=== PATIENT | female | born 1940 | race Two or more races ===

== ENCOUNTER 2017-11-14 09:15 | Inpatient (IN) | payer OTHER ==
[2017-11-15] MEDS ORDERED: IOPAMIDOL (ISOVUE-300) 100 ML BTL ONE ×2 (08:09→10:59)
[2017-11-15] MEDS ORDERED: CLOPIDOGREL BISULFATE 75 MG TAB PO ONE (09:40)
[2017-11-15] MEDS ORDERED: ceFAZolin 2 GM/DEXTROSE 100 ML IV ONE (09:40)
[2017-11-15] MEDS ORDERED: ACETAMINOPHEN 500 MG TAB PO ONE (09:40)
--- NOTE | 2017-11-15 09:41 | PDHPUP ---
History & Physical Update H&P update statement: This history and physical update is based on an assessment of the patient which was completed after admission or registration (within 24 hours), but prior to the surgery/procedure. H&P update: H&P reviewed & patient examined, no change in patient's condition since H&P completed
[2017-11-15] MEDS ORDERED: fentaNYL 100 MCG/2 ML INJ ONE (09:51)
[2017-11-15] MEDS ORDERED: PROPOFOL/EMULSION 500 MG/50 ML BOTTLE IV ONE (09:53)
[2017-11-15] MEDS ORDERED: PHENYLEPHRINE HCL 100 MCG/ML SYR ONE (10:04)
[2017-11-15] MEDS ORDERED: ONDANSETRON 4 MG/2 ML VIAL IVP PRN ×2 (11:43→13:21)
[2017-11-15] MEDS ORDERED: NALOXONE HCL 0.4 MG/ML INJ IVP PRN (11:43)
[2017-11-15] MEDS ORDERED: HYDROmorphONE/DILAUDID 2 MG/ML INJ IVP PRN (11:43)
[2017-11-15] MEDS ORDERED: NS 500 ML IV PRN (11:43)
[2017-11-15] MEDS ORDERED: DEXAMETHASONE 4 MG/ML VIAL IVP PRN (11:43)
[2017-11-15] MEDS ORDERED: fentaNYL 100 MCG/2 ML INJ IVP PRN (11:43)
--- NOTE | 2017-11-15 11:43 | PDANEPAE ---
ANE History of Present Illness here for JOY stent/coil ANE Past Medical History - Cardiovascular History Hx Hypertension: No Hx Arrhythmias: No Hx Chest Pain: No Hx Coronary Artery / Peripheral Vascular Disease: No Hx CHF / Valvular Disease: No Hx Palpitations: No - Pulmonary History Hx COPD: No Hx Asthma/Reactive Airway Disease: No Hx Recent Upper Respiratory Infection: No Hx Oxygen in Use at Home: No Hx Sleep Apnea: No Sleep Apnea Screening Result - Last Documented: Negative Pulmonary History Comment: quit smoking Sep 28, 2017 - Neurologic History Hx Cerebrovascular Accident: No Hx Seizures: No Hx Dementia: No - Endocrine History Hx Diabetes: No - Renal History Hx Renal Disorders: No - Liver History Hx Hepatic Disorders: No - Neurological & Psychiatric Hx Hx Neurological and Psychiatric Disorders: No - Cancer History Hx Cancer: No - Congenital Disorder History Hx Congenital Disorders: No - GI History Hx Gastrointestinal Disorders: No - Other Health History Other Health History: Altered vision - Chronic Pain History Chronic Pain: No - Surgical History Prior Surgeries: Aneurysm ANE Review of Systems Review of systems is: negative Review of Systems: - Exercise capacity METS (RN): 2 METS ANE Patient History - Allergies Allergies/Adverse Reactions: No Known Allergies Allergy (Verified 11/07/17 16:39) - Home Medications Home Medications: Aspirin EC [Aspirin EC 81 mg (*)] 81 mg PO DAILY 11/07/17 [Last Taken 11/15/17 06:00] Atorvastatin Calcium [Lipitor 10 mg (*)] 10 mg PO DAILY 11/07/17 [Last Taken 06:00] Clopidogrel Bisulfate [Plavix (*)] 75 mg PO DAILY 11/07/17 [Last Taken 11/14/17 0600] - Smoking Hx Smoking Status: Former smoker - Family Anes Hx Family Hx Anesthesia Complications: None known ANE Labs/Vital Signs - Vital Signs Vital Signs: reviewed preoperatively; see RN documention for details Blood Pressure: 157/88 Heart Rate: 68 Respiratory Rate: 18 O2 Sat (%): 98 Height: 152.4 cm Weight: 58.967 kg ANE Physical Exam - Airway Neck exam: FROM Mallampati Score: Class 1 Mouth exam: dentures - Pulmonary Pulmonary: no respiratory distress - Cardiovascular Cardiovascular: regular rate and rhythym - ASA Status ASA Status: III ANE Anesthesia Plan Anesthesia Plan: general endotracheal anesthesia Lines/Monitors: arterial line
[2017-11-15] MEDS ORDERED: HYDROmorphone HCL 0.5 MG/0.5 ML SYR IVP PRN (12:00)
[2017-11-15] MEDS ORDERED: HEPARIN 10,000 UNIT/10 ML MDV (1,000 UNIT/ML) ONE (12:15)
[2017-11-15] MEDS ORDERED: ROCURONIUM 100 MG/10 ML VIAL ONE (12:16)
[2017-11-15] MEDS ORDERED: ESMOLOL HCL 100 MG/10 ML VIAL IV ONE (12:16)
[2017-11-15] MEDS ORDERED: PROPOFOL 200 MG/20 ML VIAL ONE (12:38)
[2017-11-15] MEDS ORDERED: SUGAMMADEX SODIUM 200 MG/2 ML VIAL IVP ONE (13:04)
[2017-11-15] MEDS ORDERED: HYDROCODONE/APAP 10/325 TAB PO PRN (13:21)
[2017-11-15] MEDS ORDERED: BISACODYL 10 MG SUPP PR PRN (13:21)
[2017-11-15] MEDS ORDERED: ACETAMINOPHEN 325 MG TAB PO PRN (13:21)
[2017-11-15] MEDS ORDERED: POLYETHYLENE GLYCOL 3350 17 GM PKT PO PRN (13:21)
[2017-11-15] MEDS ORDERED: LACTULOSE 20 GM/30 ML UDCUP PO PRN (13:21)
[2017-11-15] MEDS ORDERED: diphenhydrAMINE 25 MG CAP PO PRN (13:21)
[2017-11-15] MEDS ORDERED: MAGNESIUM HYDROXIDE 30 ML UDCUP PO PRN (13:21)
[2017-11-15] MEDS ORDERED: ONDANSETRON DISINTEGRATING 4 MG TAB PO PRN (13:21)
--- NOTE | 2017-11-15 13:42 | NEUSURGPN ---
Assessment/Plan: S: Patient still waking up, doing well. O: NAD, VSS PERRL, EOMI No droop CN II-XII grossly intact JOY X4 A: 77 yo female sp stent/coil embolization of unruptured JOY aneurysm P: -Admit to ICU overnight -HOB flat X 4 hours then up adlib -Watch right femoral site for signs of hematoma, hold pressure X30 minutes if seen -Q1 hour neuro X8 then q2 -SBP 90-140 -Continue Aspirin and Plavix- will continue Plavix for 6 months and asa forever -Call with any questions or concerns - Physician Discussed Patient with Dr.: Holloway Patient Seen by Dr.: Holloway Neurosurgery Physical Exam - Vitals, I&O, Labs I and O 11/14/17 11/15/17 11/16/17 05:59 05:59 05:59 Weight 58.967 kg 58.967 kg Vital Signs Temp Pulse Resp BP Pulse Ox 36.8 C 68 18 157/88 H 98 11/15/17 08:40 11/15/17 11:43 11/15/17 11:43 11/15/17 11:43 11/15/17 11:43 ICD10 Worksheet Patient Problems: Problems Problem Status Onset Unruptured cerebral aneurysm Acute - ICD10 Problem Qualifiers (1) Unruptured cerebral aneurysm
--- NOTE | 2017-11-15 14:17 | POSTOPPROG ---
Post Op Note Date of Operation: 11/15/17 Surgeon: Maicol Holloway Anesthesia: GET(General Endotracheal) Pre-op Diagnosis: unruptured cerebral aneurysm Post-op Diagnosis: same Procedure: Stent assisted coil embolization of unruptured JOY aneurysm Inf/Abcess present in the surg proc area at time of surgery?: No Depth: Organ Space EBL: Minimal Complications: None observed
--- NOTE | 2017-11-15 14:17 | POSTANESTH ---
Post Anesthetic Evaluation Cardiovascular Status: Normal, Stable Respiratory Status: Normal, Stable Level of Consciousness/Mental Status: Can Participate in Eval Pain Control: Adequate, Prn Tx Ordered Nausea/Vomiting Control: Adequate, Prn Tx Ordered Complications Possibly Related to Anesthesia: None Noted
--- NOTE | 2017-11-15 14:44 | PDMN ---
Medical Necessity Medical necessity: MCG: HARDIK neurosgy CPT 76375 [facility] INPT only 1 day: OP:: stent assisted coil embolization of unruptured JOY aneurysm
[2017-11-15] MEDS: niCARdipine/NACL 200 ML IV PRN ×2 (15:05→20:35)
[2017-11-15] MEDS: NS W/ 20 KCl/L 1,000 ML IV SCH (15:26)
[2017-11-15] MEDS: SENNOSIDES/DOCUSATE SODIUM TAB PO SCH (20:37)
[2017-11-16] MEDS: NS W/ 20 KCl/L 1,000 ML IV SCH (01:00)
[2017-11-16] MEDS: niCARdipine/NACL 200 ML IV PRN (05:13)
[2017-11-16 05:58] LABS: PLATELET COUNT 139 10^3/uL (150-400)
--- NOTE | 2017-11-16 08:12 | NEUSURGPN ---
Assessment/Plan: A: 77 yo female sp stent/coil embolization of unruptured JOY aneurysm P: -Admit to ICU overnight -SBP 90-140, wean cardene -Continue Aspirin and Plavix- will continue Plavix for 6 months and asa forever -Call with any questions or concerns Subjective: Denies any leg pain, numbness, tingling or new weakness, states left sided strength is stable. Objective: NAD, VSS PERRL, EOMI No droop CN II-XII grossly intact JOY X4. LUE and LLE 5-/5 diffusely throughout - Physician Discussed Patient with : Amie Neurosurgery Physical Exam - Vitals, I&O, Labs I and O 11/15/17 11/16/17 11/17/17 05:59 05:59 05:59 Intake Total 2792 Output Total 1413 100 Balance 1379 -100 Weight 58.967 kg 60.7 kg Intake: Oral (ml) 200 IV Intake (ml) 800 IV Infused (ml) 1792 NS W/ 20 KCl/L 1,000 ml @ 1415 100 mls/hr IV CONT GIANLUCA Rx#:[id number] niCARdipine/NACL 200 ml @ 377 Titrate IV PRN PRN Rx#: [id number] Output: Urine (ml) 1403 100 Bedpan 853 Bedside Commode 550 100 Estimated Blood Loss (ml) 10 Other: Number of Voids Bedside Commode 1 1 Vital Signs Temp Pulse Resp BP Pulse Ox 36.5 C 66 18 116/60 98 11/15/17 20:00 11/16/17 06:00 11/16/17 06:00 11/16/17 06:00 11/16/17 06:00 Laboratory Results 11/16/17 05:25 ICD10 Worksheet Patient Problems: Problems Problem Status Onset Unruptured cerebral aneurysm Acute
[2017-11-16] MEDS: SENNOSIDES/DOCUSATE SODIUM TAB PO SCH (08:13)
[2017-11-16 08:21] VITALS: BP 123/61
[2017-11-16] MEDS ORDERED: ATORVASTATIN CALCIUM 10 MG TAB PO SCH (09:00)
[2017-11-16] MEDS ORDERED: ASPIRIN EC 81 MG TAB PO SCH (09:00)
[2017-11-16] MEDS ORDERED: CLOPIDOGREL BISULFATE 75 MG TAB PO SCH (09:00)
== END 2017-11-16 09:13 | disposition home or self-care (01) | DRG 27 ==
LOC: F3N 11-15 06:59 → EDSTATUS 11-15 09:15 → F2N 11-15 14:43
PROVIDERS: ADMIT Neurological Surgery; ATTEND Neurological Surgery
PROC: B31D1ZZ Fluoroscopy of Right Vertebral Artery using Low Osmolar Contrast (ICD-10-PCS; principal; 2017-11-15 13:28)
PROC: B3161ZZ Fluoroscopy of Right Internal Carotid Artery using Low Osmolar Contrast (ICD-10-PCS; principal; 2017-11-15 13:28)
PROC: 03VG3DZ Restriction of Intracranial Artery with Intraluminal Device, Percutaneous Approach (ICD-10-PCS; principal; 2017-11-15 13:28)
DX: I67.1 Cerebral aneurysm, nonruptured (principal); F17.200 Nicotine dependence, unspecified, uncomplicated
CPT/HCPCS: 92610-GN; C1760; C1769; C1887; C1892; C1894; G8996-GN-CH; G8997-GN-CH; G8998-GN-CH; J0690; J1644; J2370; J2405; J2704; J3010; Q9967

== ENCOUNTER 2018-02-22 11:28 | Inpatient (IN) | payer OTHER ==
[2018-02-22] MEDS ORDERED: fentaNYL 100 MCG/2 ML INJ IVP PRN ×2 (11:58→18:48)
[2018-02-22] MEDS ORDERED: MEPERIDINE 25 MG/ML SYR IVP PRN (11:58)
[2018-02-22] MEDS ORDERED: MIDAZOLAM 2 MG/2 ML VIAL IVP PRN (11:58)
[2018-02-22] MEDS ORDERED: PROTAMINE SULFATE 50 MG/5 ML VIAL IVP PRN (11:58)
[2018-02-22] MEDS ORDERED: HEPARIN 10,000 UNIT/10 ML MDV (1,000 UNIT/ML) IVP PRN (11:58)
[2018-02-22] MEDS ORDERED: NALOXONE HCL 0.4 MG/ML INJ IVP PRN ×2 (11:58→18:48)
[2018-02-22] MEDS ORDERED: ALTEPLASE 2 MG VIAL IVP PRN (11:58)
[2018-02-22] MEDS ORDERED: FLUMAZENIL 0.5 MG/5 ML MDV IVP PRN (11:58)
[2018-02-22] MEDS ORDERED: NS 1,000 ML IV SCH ×2 (12:00→18:30)
[2018-02-22] MEDS ORDERED: ASPIRIN 325 MG TAB PO ONE (12:45)
[2018-02-22] MEDS ORDERED: CLOPIDOGREL BISULFATE 75 MG TAB PO ONE ×2 (13:15→13:45)
--- NOTE | 2018-02-22 13:49 | PDANEPAE ---
ANE History of Present Illness Pipeline embolization PICA aneurysm ANE Past Medical History - Cardiovascular History Hx Hypertension: No Hx Arrhythmias: No Hx Chest Pain: No Hx Coronary Artery / Peripheral Vascular Disease: No Hx CHF / Valvular Disease: No Hx Palpitations: No - Pulmonary History Hx COPD: No Hx Asthma/Reactive Airway Disease: No Hx Recent Upper Respiratory Infection: No Hx Oxygen in Use at Home: No Hx Sleep Apnea: No Sleep Apnea Screening Result - Last Documented: Negative Pulmonary History Comment: quit smoking Sep 28, 2017 - Neurologic History Hx Cerebrovascular Accident: No Hx Seizures: No Hx Dementia: No - Endocrine History Hx Diabetes: No Hypothyroid: No Hyperthyroid: No - Renal History Hx Renal Disorders: No - Liver History Hx Hepatic Disorders: No - Neurological & Psychiatric Hx Hx Neurological and Psychiatric Disorders: No - Cancer History Hx Cancer: No - Congenital Disorder History Hx Congenital Disorders: No - GI History Hx Gastrointestinal Disorders: No - Other Health History Other Health History: Altered vision - Chronic Pain History Chronic Pain: No - Surgical History Prior Surgeries: cerebral Aneurysm x2, ANE Review of Systems Review of Systems: - Exercise capacity METS (RN): 4 METS ANE Patient History - Allergies Allergies/Adverse Reactions: No Known Allergies Allergy (Verified 02/19/18 15:31) - Home Medications Home Medications: Aspirin EC [Aspirin EC 81 mg (*)] 81 mg PO DAILY 11/07/17 [Last Taken 02/21/18] Atorvastatin Calcium [Lipitor 10 mg (*)] 10 mg PO DAILY 11/07/17 [Last Taken ] Clopidogrel Bisulfate [Plavix (*)] 75 mg PO DAILY 11/07/17 [Last Taken 02/22/18] - NPO status NPO Status: no food or drink >8 hours - Anes Hx Anes Hx: no prior problems, post operative nausea - Smoking Hx Smoking Status: Former smoker - Alcohol Use Alcohol Use: Sober - Family Anes Hx Family Anes Hx: none Family Hx Anesthesia Complications: None known ANE Labs/Vital Signs - Vital Signs Blood Pressure: 163/102 Heart Rate: 65 Respiratory Rate: 16 O2 Sat (%): 97 Height: 152.4 cm Weight: 58.967 kg ANE Physical Exam - Airway Neck exam: decreased ROM Mouth exam: dentures - Pulmonary Pulmonary: no respiratory distress, no rales or rhonchi - Cardiovascular Cardiovascular: regular rate and rhythym, no murmur, rub, or gallop - ASA Status ASA Status: III ANE Anesthesia Plan Anesthesia Plan: general endotracheal anesthesia Lines/Monitors: arterial line
--- NOTE | 2018-02-22 14:42 | GHP ---
DATE OF ADMISSION: 02/22/2018 This is an update to a previous admission history and physical from October as the patient is being admitted for an elective procedure. HPI: Maria Teresa Vallejo is a 77-year-old woman whom we have seen many times previously who has had multi ple cerebral aneurysms. 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 After that time, she continued to smoke and saw me for followup with recurrence of both aneurysms. Back in October, we did stent-assisted coil embolization of the anterior cerebral artery aneurysm, and she has done well. 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 She has stopped smoking since September and has not restarted at this point in time. She has not had any signs of complications after her previous proce dure. She continues to take daily aspirin and Plavix. She did have a TEG study done yesterday which revealed an arachidonic acid platelet inhibition of 37% and ADP of 42.9%. This is similar to the va lues from previously, although the arachidonic acid has fallen slightly. REVIEW OF SYSTEMS: A 10-point review of systems is negative other than described above in HPI. PAST MEDICAL HISTORY: 1. Tobacco abuse. 2. History of cerebral aneurysms. 3. Hypertension. PAST SURGICAL HISTORY: 1. Craniotomy x2 for cerebral aneurysm clipping. 2. Stent-assisted coil embolization of anterior cerebral artery aneurysm October 2017. ALLERGIES: No known drug allergies. MEDICATIONS: Her medications were reviewed within the electronic medical record and are significant for aspirin and Plavix. Otherwise, I have no updates. SOCIAL HISTORY: The patient is a former smoker. She quit in September 2017. She denies alcohol or oth er drug use. FAMILY HISTORY: Noncontributory to this admission. PHYSICAL EXAMINATION: VITAL SIGNS: Currently, she is afebrile, with normal, stable vital signs. Sh jenn is slightly hypertensive, with a systolic blood pressure around 160. GENERAL: She is awake, alert , and oriented x3. NEUROLOGIC: Her cranial nerves 2-12 are grossly normal. In the upper extremitie s, she has 5/5 strength in all muscle groups with no pronator drift. In the lower extremities, she a lso has 5/5 strength in all muscle groups with no pronator drift. Her sensation is intact. Deep ten don reflexes are normal. RESPIRATORY: Her work of breathing appears normal. HEART: With regular r ate and rhythm. IMAGING REVIEW: She has no new imaging for review at this time. ASSESSMENT AND PLAN: Maria Teresa Vallejo is a 77-year-old woman who presents electively for pipeline embo lization of a recurrent posterior inferior cerebellar artery aneurysm. We discussed the risks and be nefits of this procedure, and she is willing to proceed. Informed consents have been obtained. The patient will stay in the hospital overnight and then likely be discharged home tomorrow, continuing o n aspirin 325 mg daily and Plavix 75 mg daily. /[id number]/MODL
[2018-02-22] MEDS ORDERED: fentaNYL 100 MCG/2 ML INJ ONE ×2 (16:31)
[2018-02-22] MEDS ORDERED: PROPOFOL/EMULSION 500 MG/50 ML BOTTLE IV ONE (16:31)
[2018-02-22] MEDS ORDERED: HEPARIN 10,000 UNIT/10 ML MDV (1,000 UNIT/ML) ONE (17:20)
[2018-02-22] MEDS ORDERED: ROCURONIUM 50 MG/5 ML VIAL ONE ×2 (17:48)
[2018-02-22] MEDS ORDERED: LIDOCAINE 2% 5 ML SDV ONE (17:48)
[2018-02-22] MEDS ORDERED: ePHEDrine SULFATE 25 MG/5 ML SYR ONE (17:48)
[2018-02-22] MEDS ORDERED: ONDANSETRON 4 MG/2 ML VIAL ONE (17:49)
[2018-02-22] MEDS ORDERED: DEXAMETHASONE 4 MG/ML VIAL ONE (17:49)
[2018-02-22] MEDS ORDERED: IOPAMIDOL (ISOVUE-300) 100 ML BTL ONE (17:57)
[2018-02-22] MEDS ORDERED: LABETALOL HCL 5 MG/ML 20 ML MDV ONE ×2 (18:07→19:02)
[2018-02-22] MEDS ORDERED: ONDANSETRON 4 MG/2 ML VIAL IVP PRN ×2 (18:20→18:48)
[2018-02-22] MEDS ORDERED: OXYCODONE/APAP 5/325 TAB PO PRN (18:20)
--- NOTE | 2018-02-22 18:20 | POSTOPPROG ---
Post Op Note Date of Operation: 02/22/18 Surgeon: Maicol Holloway Corporate Communications Intern: none Anesthesiologist: Romain Anesthesia: GET(General Endotracheal) Pre-op Diagnosis: recurrent right PICA aneurysm Post-op Diagnosis: same Indication: same Procedure: Pipeline Embolization Right PICA aneurysm Findings: successful Pipeline placement Inf/Abcess present in the surg proc area at time of surgery?: No EBL: Minimal
[2018-02-22] MEDS ORDERED: hydrALAZINE 20 MG/ML VIAL IVP PRN (18:21)
[2018-02-22] MEDS ORDERED: ALBUTEROL 3 ML DEYVIAL IH PRN (18:48)
--- NOTE | 2018-02-22 18:52 | POSTANESTH ---
Post Anesthetic Evaluation Cardiovascular Status: Similar to Pre-Op Cond Respiratory Status: Normal, Stable Level of Consciousness/Mental Status: Can Participate in Eval Pain Control: Adequate, Prn Tx Ordered Nausea/Vomiting Control: Adequate, Prn Tx Ordered Complications Possibly Related to Anesthesia: None Noted (Moving all four extremities)
--- NOTE | 2018-02-22 19:03 | PDCONSULT ---
Skinning Machine Feeder Note: NEUROSURGERY resting well in PACU AAOx3, CNII-XII normal Full strength sensation normal groin c/d/i, no hematoma, distal pulses palpable POD#0 s/p pipeline embolization of right PICA aneurysm - doing well - ICU observation overnight - d/c tomorrow on ASA 325 daily and plavix 75 daily Amie
[2018-02-22] MEDS: LABETALOL HCL 5 MG/ML 20 ML MDV IVP PRN ×2 (19:05→19:28)
[2018-02-23] MEDS: CLOPIDOGREL BISULFATE 75 MG TAB PO SCH (08:11)
[2018-02-23] MEDS: ASPIRIN 325 MG TAB PO SCH (08:11)
[2018-02-23] MEDS: ATORVASTATIN CALCIUM 10 MG TAB PO SCH (08:11)
[2018-02-23] MEDS ORDERED: IOPAMIDOL (ISOVUE 370) 100 ML BTL IV ONE (09:49)
--- NOTE | 2018-02-23 10:16 | NEUSURGPN ---
Assessment/Plan: 77y/o female s/p right stenting of vertebral artery aneurysm. -Patient was doingw ell this mornign then reported acute loss of vision in left eye. STAT CTA of head and neck ordered -Continue [id number] and Plavix -Continue ICU level of care -Discussed with Dr. Holloway -Please notify NS with any change in neuro/motor exam Subjective: Acute left vision loss. Denies any headaches, nausea, dizziness Objective: NAD A&Ox3, MAEx4. When examining the patient. EOMI, PERRLA and vision was intact this morning. Recevied a call from the nurse that she has acutely loss vision in the left eye later this morning. Groin site flat, c/d/i - Physician Discussed Patient with : Amie Neurosurgery Physical Exam - Vitals, I&O, Labs I and O 02/22/18 02/23/18 02/24/18 05:59 05:59 05:59 Intake Total 1449 Output Total 1370 Balance 79 Weight 58.967 kg Intake: Oral (ml) 499 IV Intake (ml) 950 Output: Urine (ml) 1350 Bedpan 1350 Estimated Blood Loss (ml) 20 Emesis (ml) 0 Other: Number of Voids Bedpan 2 Toilet 1 Vital Signs Temp Pulse Resp BP Pulse Ox 37.1 C 70 18 117/77 94 02/23/18 04:00 02/23/18 09:00 02/23/18 09:00 02/23/18 09:00 02/23/18 09:00 ICD10 Worksheet Patient Problems: Problems Problem Status Onset Unruptured cerebral aneurysm Acute
--- NOTE | 2018-02-23 11:02 | PDMN ---
Medical Necessity Medical necessity: Pt meets inpt criteria per MD order and Neurosurgery or Procedure GRG, s/p pipeline embolization of R PICA aneurysm, Medicare IP only list, ICU monitoring/care, POD#1 today, pt reporting acute loss of vision in L eye, cont ICU care.
[2018-02-23] MEDS: NS W/ 20 KCl/L 1,000 ML IV SCH (11:43)
[2018-02-23] MEDS ORDERED: CARBOXYMETHYLCELLULOSE 0.5% 0.4 ML DROPERETTE EACHEYE PRN (15:13)
--- NOTE | 2018-02-23 16:37 | PDCONSULT ---
Rubber Goods Finisher Note: Neurosurgery I saw Mari aTeresa this afternoon. She has been having waxing and waning visual problems today which seems to be related to the left eye or sometimes the left visual field. It is blurry vision, not blindness. 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 A CT/CTA of the brain was unremarkable earlier today. I wonder if some of these changes may be related to sleep deprivation or medications. She cannot get an MRI due to her aneurysm clips. I will get another CT of the brain in the morning and if she had a stroke, it should be evident by that time. Otherwise I do expect this to get better on its own. I updated the son at the bedside as well. Amie
--- NOTE | 2018-02-23 16:44 | ASMTCMCOM ---
CM Note CM Note Notes: Pt is a 77 yo F with history of cerebral aneurysms and HTN. Pt underwent pipeline embolization. Pt has OT orders in. CM to follow. Plan: TBD Date Signed: 02/23/2018 04:44 PM Electronically Signed By:CAITLYN Shrestha
--- NOTE | 2018-02-24 07:14 | NEUSURGPN ---
Date of Surgery: 02/22/18 Post Op Day: 2 Assessment/Plan: 77y/o female s/p right stenting of vertebral artery aneurysm. concern for changes in visual acuity on the left and some visual field neglect on nursing tests, however no left sided weakness on exam. visual changes not well explained by procedure. Repeat CT this am without evidence of acute infarct, pt states vision improving but still appears to have some acuity deficits, noted on left and right tate today. -pt/ot/PHONE REPRESENTATIVE to evaluate functional status -will likely need ophthalmology referral at discharge -Continue [id number] and Plavix -Continue ICU level of care today -Discussed with Dr. Holloway -Please notify NS with any change in neuro/motor exam Subjective: states her vision is much better today and she can see TV. Nursing showed drawing of clock that should left sided field deficit. Objective: NAD VSS EOMI, PEARLA visual acuity appears impaired both right and left tate today, appears worse on left eye than right. mild assymetry on smile (left side sag) tongue protrusion R of midline. no pronator drift MAEx4, 5/5=- SILT Coordination normal femoral incision CDI - Physician Discussed Patient with Dr.: Holloway Neurosurgery Physical Exam - Vitals, I&O, Labs I and O 02/23/18 02/24/18 02/25/18 05:59 05:59 05:59 Intake Total 1449 1882 Output Total 1370 Balance 79 1882 Weight 58.967 kg Intake: Oral (ml) 499 850 IV Intake (ml) 950 IV Infused (ml) 1032 NS W/ 20 KCl/L 1,000 ml @ 1032 75 mls/hr IV CONT GIANLUCA Rx #:[id number] Output: Urine (ml) 1350 Bedpan 1350 Estimated Blood Loss (ml) 20 Emesis (ml) 0 Other: Number of Voids Bedpan 2 Incontinence 5 Toilet 1 2 Vital Signs Temp Pulse Resp BP Pulse Ox 37.1 C 67 18 157/86 H 92 02/23/18 04:00 02/24/18 04:00 02/24/18 04:00 02/24/18 04:00 02/24/18 04:00 ICD10 Worksheet Patient Problems: Problems Problem Status Onset Unruptured cerebral aneurysm Acute
[2018-02-24] MEDS: CLOPIDOGREL BISULFATE 75 MG TAB PO SCH (10:15)
[2018-02-24] MEDS: ATORVASTATIN CALCIUM 10 MG TAB PO SCH (10:15)
[2018-02-24] MEDS: ASPIRIN 325 MG TAB PO SCH (10:15)
--- NOTE | 2018-02-24 15:36 | ASMTCMCOM ---
CM Note CM Note Notes: Spoke with pt's RN and with pt and her son in the room. Pt admitted for surgery on cerebral aneurysm and is experiencing vision loss post op, which is improving daily. Pt and family live in [place]. PT and OT are both recommending inpatient rehab at this time. No order for inpatient rehab has been placed by physician. [facility] notified of possibility. If pt is more appropriate for SNF, son is requesting placement in [place] and was given a list of facilities available in [place] for him to begin to explore. If vision continues to improve, HHC may be appropriate. CM to follow. D/C Plan: TBD Date Signed: 02/24/2018 03:35 PM Electronically Signed By:Araceli Mancera
[2018-02-24] MEDS: NS W/ 20 KCl/L 1,000 ML IV SCH (20:00)
[2018-02-25] MEDS: ATORVASTATIN CALCIUM 10 MG TAB PO SCH (08:55)
[2018-02-25] MEDS: CLOPIDOGREL BISULFATE 75 MG TAB PO SCH (08:55)
[2018-02-25] MEDS: ASPIRIN 325 MG TAB PO SCH (08:55)
[2018-02-25 09:47] VITALS: BP 126/76
--- NOTE | 2018-02-25 10:16 | NEUSURGPN ---
Date of Surgery: 02/22/18 Post Op Day: 3 Assessment/Plan: 77y/o female s/p right stenting of vertebral artery aneurysm. concern for changes in visual acuity on the left and some visual field neglect on nursing tests, however no left sided weakness on exam. visual changes not well explained by procedure. Repeat CT 02/23 without evidence of acute infarct, seen by therapy teams and visual deficits have drastically improved, no field deficits or gross acuity deficits on exam today. However, still has some neglect sign on her drawings, suspect his may be from old infarct? -pt/ot/MEAT GRINDER cleared for DC, we will provide outpt therapy orders -Continue [id number] and Plavix -home later today -Discussed with Dr. Holloway -Please notify NS with any change in neuro/motor exam Subjective: doing much better, she feels back to normal. Objective: NAD, up in chair VSS AAOx3 EOMI, PEARLA vision appears intact today in all tate. speech clear and fluent no pronator drift MAEx4, 5/5=- SILT Coordination normal femoral incision CDI, no hematoma - Physician Discussed Patient with : Amie Neurosurgery Physical Exam - Vitals, I&O, Labs I and O 02/24/18 02/25/18 02/26/18 05:59 05:59 05:59 Intake Total 1882 1864 520 Output Total 900 Balance 1882 964 520 Intake: Oral (ml) 850 360 360 IV Infused (ml) 1032 1504 160 NS W/ 20 KCl/L 1,000 ml @ 1032 1504 160 75 mls/hr IV CONT GIANLUCA Rx #:[id number] Output: Urine (ml) 900 Toilet 900 Other: Intake Quantity No Sufficient Number of Voids Incontinence 5 2 Toilet 2 1 1 Number of Stools Toilet 0 Vital Signs Temp Pulse Resp BP Pulse Ox 36.8 C 78 14 126/76 H 95 02/25/18 08:00 02/25/18 08:00 02/25/18 08:00 02/25/18 08:00 02/25/18 08:00 ICD10 Worksheet Patient Problems: Problems Problem Status Onset Unruptured cerebral aneurysm Acute
--- NOTE | 2018-02-25 11:47 | ASDISCHSUM ---
Discharge Information Plan Status:Home with No Needs Medically Cleared to Leave:02/24/2018 Discharge Date:02/25/2018 11:30 AM CM D/C Disposition:Home, Routine, Self-Care ADT D/C Disposition:Home, Routine, Self-Care Projected Discharge Date:02/25/2018 12:00 PM Transportation at D/C:Family Discharge Delay Reason: Follow-Up Date:02/25/2018 12:00 PM Discharge Slot:1 - 8:01 am - 12:00 noon Final Diagnosis:Visual changes s/p AAA stent Placement Information Patient Contact Information Contact Name:EDITH Relationship:Josesito Address: Work Phone: City: [facility] Phone: State/[place] Code: Email: Financial Information Financial Class:Medicare Advantage Plans Primary Plan Desc:[facility] [employer] PLANS Primary Plan Number:[id number] Secondary Plan Desc: Secondary Plan Number: Assessment Information [facility] Progress Note CM Note CM Note Notes: Pt is a 77 yo F with history of cerebral aneurysms and HTN. Pt underwent pipeline embolization. Pt has OT orders in. CM to follow. Plan: TBD Date Signed: 02/23/2018 04:44 PM Electronically Signed By:CAITLYN Shrestha [facility] CM Progress Note CM Note CM Note Notes: Spoke with pt's RN and with pt and her son in the room. Pt admitted for surgery on cerebral aneurysm and is experiencing vision loss post op, which is improving daily. Pt and family live in [place]. PT and OT are both recommending inpatient rehab at this time. No order for inpatient rehab has been placed by physician. [facility] notified of possibility. If pt is more appropriate for SNF, son is requesting placement in [place] and was given a list of facilities available in [place] for him to begin to explore. If vision continues to improve, HHC may be appropriate. CM to follow. D/C Plan: TBD Date Signed: 02/24/2018 03:35 PM Electronically Signed By:Araceli Mancera Case Management Discharge Plan Note Case Management Discharge Discharge Order Complete? Answers: Yes Patient to Obtain Answers: via Family Medications Transportation Arranged Answers: Family/Friends Transport will Pick (Date 02/25/2018 12:00 PM & Time) Family Notified Answers: Yes Notes: Family to transport Discharge Comments Notes: Patient has been discharged home. PT/OT/ST would like out-pt therapy for patient. wrote script. Date Signed: 02/25/2018 11:46 AM Electronically Signed By:Inessa Olivera LCSW Intervention Information
== END 2018-02-25 11:30 | disposition home or self-care (01) | DRG 27 ==
LOC: FIMAGING 11:28 → F2N 19:55
PROVIDERS: ADMIT Neurological Surgery; ATTEND Neurological Surgery
PROC: 03VG3DZ Restriction of Intracranial Artery with Intraluminal Device, Percutaneous Approach (ICD-10-PCS; principal; 2018-02-22 13:00)
DX: I67.1 Cerebral aneurysm, nonruptured (principal); H54.3 Unqualified visual loss, both eyes; I10 Essential (primary) hypertension; Z87.891 Personal history of nicotine dependence; Z86.73 Personal history of transient ischemic attack (TIA), and cerebral infarction without residual deficits
CPT/HCPCS: 92523-GN; 97116-GP; 97162-GP; 97166-GO; 97535-GO; C1760; C1769; C1887; C1893; C1894; G0515-GO; G8978-GP-CI; G8978-GP-CJ; G8979-GP-CI; G8980-GP-CI; G8987-GO-CK; G8988-GO-CI; G9168-GO-CI; G9169-GN-CI; G9170-GN-CI; J1100; J1644; J2405; J2704; J3010; Q9967

== ENCOUNTER → 2018-08-17 | Outpatient (CLI) | payer OTHER | LOC: CIMAGING 09:18 ==